=== PATIENT | male | born 1955 | race Caucasian/White ===

== ENCOUNTER 2025-09-11 21:00 | Emergency (ER) | payer MEDICARE, BC ==
[~2025-09-11] VITALS: Ht 185.4 cm; Wt 79.4 kg
[2025-09-11 21:43] LABS: PLATELET COUNT (AUTO) 224 K/uL (150-450); RED BLOOD CELL COUNT(AUTO) 4.41 MIL/uL (4.5-6.0); RED CELL DISTRIBUTION WIDTH 12.3 % (11.5-15.0); WHITE BLOOD COUNT (AUTO) 6.2 K/uL (4.3-11.0)
[2025-09-11 21:53] LABS: CALCIUM, SERUM 8.9 mg/dL (8.5-10.1); CREATININE 1.1 mg/dL (0.6-1.3); SODIUM SERUM 143 mmol/L (136-145); UREA NITROGEN, BLOOD 17 mg/dL (7-18)
[2025-09-12 00:44] VITALS: BP 144/78; TEMP 98.3; O2SAT 99
== END 2025-09-12 00:45 | disposition home or self-care (01) ==
LOC: ER 21:02
DX: R07.9 Chest pain, unspecified (principal); E78.5 Hyperlipidemia, unspecified; I48.91 Unspecified atrial fibrillation; I10 Essential (primary) hypertension; Z88.0 Allergy status to penicillin; Z88.1 Allergy status to other antibiotic agents; Z88.5 Allergy status to narcotic agent
CPT/HCPCS: 36415; 71045-TC; 80048-TC; 84484-TC; 85025-TC